=== PATIENT | male | born 1970 | race Hispanic/Latino ===

== ENCOUNTER 2017-02-27 05:55 | Inpatient (IN) | payer OTHER ==
[~2017-02-27 05:55] MED LIST: ANCEF/STERILE WATER 2 GM/20 ML 2 GM/20 ML SYRINGE IV NR; APRESOLINE IV PRN; DILAUDID IV PRN; FLAGYL 500 MG/100 ML 500 MG/100 ML BAG IV NR; LACTATED RINGERS 1,000 ML IV SCH; LOVENOX SUB-Q NR; MORPHINE IV PRN; MYLICON PO PRN; REGLAN IV PRN; TRANSDERM-SCOP TD SCH; ZOFRAN IV PRN
[2017-02-27] MEDS ORDERED: TRANSDERM-SCOP TD SCH (06:00)
[2017-02-27] MEDS ORDERED: FLAGYL 500 MG/100 ML 500 MG/100 ML BAG IV NR (06:00)
[2017-02-27] MEDS ORDERED: LOVENOX SUB-Q NR (06:00)
[2017-02-27] MEDS ORDERED: ANCEF/STERILE WATER 2 GM/20 ML 2 GM/20 ML SYRINGE IV NR (06:00)
[2017-02-27 07:12] LABS: Basophils % (Auto) 0.7 % (0.0-1.8); Hematocrit 44.6 % (35.5-45.6); Hemoglobin 15.4 gm/dl (11.8-15.2); Mean Corpuscular HGB Conc 35 % (32-34); Mean Corpuscular Hemoglobin 31 pg (28-32); Mean Corpuscular Volume 90 fl (84-94); Platelet Count 269 K/mm3 (140-440); Red Blood Count 4.96 M/mm3 (3.65-5.03); Red Cell Distribution Width 13.1 % (13.2-15.2); White Blood Count 7.1 K/mm3 (4.5-11.0)
[2017-02-27 07:15] LABS: Bilirubin,Urine NEG (Negative); Blood,Urine NEG (Negative); Ketones,Urine NEG (Negative); Leukocyte Esterase,Urine NEG (Negative); Mucus,Urine FEW /HPF; Nitrite,Urine NEG (Negative); Protein,Urine <15 mg/dL mg/dL (Negative); Urobilinogen,Urine < 2.0 mg/dL (<2.0)
[2017-02-27] MEDS ORDERED: DIPRIVAN 10 MG/ML IV ONE ×3 (07:18→09:31)
[2017-02-27] MEDS ORDERED: SUBLIMAZE ONE ×2 (07:18→08:34)
[2017-02-27] MEDS ORDERED: DILAUDID ONE ×2 (07:18→13:21)
[2017-02-27] MEDS ORDERED: ZOFRAN ONE (07:19)
[2017-02-27] MEDS ORDERED: ZEMURON IV ONE ×2 (07:19→11:02)
[2017-02-27] MEDS ORDERED: NEOSTIGMINE ONE (07:19)
[2017-02-27] MEDS ORDERED: DECADRON ONE (07:19)
[2017-02-27] MEDS ORDERED: ROBINUL ONE ×2 (07:19)
[2017-02-27] MEDS ORDERED: XYLOCAINE MPF 2% ONE (07:19)
--- NOTE | 2017-02-27 07:22 | Anesthesia Day of Surgery ---
Anesthesia Day of Surgery - Day of Surgery Patient Examined: Yes Patient H&P Reviewed: Yes Patient is NPO: Yes Beta Blockers: Yes Cardiac Clearance: Yes
--- NOTE | 2017-02-27 07:23 | Anesthesia Consultation ---
Anesthesia Consult and Med Hx Date of service: 02/27/17 - Airway Anesthetic Teeth Evaluation: Good, Crowns (top right molar) ROM Head & Neck: Adequate Mental/Hyoid Distance: Adequate Mallampati Class: Class II Intubation Access Assessment: Probably Good - Pulmonary Exam CTA: Yes - Cardiac Exam Cardiac Exam: RRR - Pre-Operative Health Status ASA Pre-Surgery Classification: ASA3 Proposed Anesthetic Plan: General - Pulmonary Hx Smoking: No Hx Sleep Apnea: Yes (+CPAP) - Cardiovascular System Hx Hypertension: Yes (9 MTHS, ON BYSTOLIC) Hx Valvular Heart Disease: Yes (MITRAL VALVE SURGERY 2016) - Central Nervous System Hx Seizures: No CVA: No - Endocrine Hx Renal Disease: No Hx Cirrhosis: No Hx Non-Insulin Dependent Diabetes: No Hx Thyroid Disease: No - Other Systems Hx Alcohol Use: Yes (VODKA 1 DRINK EVERY EVENING) Hx Cancer: No Hx Obesity: Yes (MORBID)
[2017-02-27] MEDS ORDERED: MARCAINE-EPI/PF 0.5%-1:200,000 INFILTRATI ONE ×2 (07:25→07:36)
[2017-02-27] MEDS ORDERED: XYLOCAINE 1% 20 mL ONE (07:25)
[2017-02-27] MEDS ORDERED: PEPCID IV NR (07:30)
[2017-02-27] MEDS ORDERED: VERSED IV NR (07:30)
[2017-02-27 07:35] LABS: Alanine Aminotransferase 24 units/L (7-56); Albumin 4.4 g/dL (3.9-5); Albumin/Globulin Ratio 1.6 %; Alkaline Phosphatase 59 units/L (35-129); Anion Gap 17 mmol/L; BUN/Creatinine Ratio 14.16; Blood Urea Nitrogen 17 mg/dL (9-20); Carbon Dioxide 24 mmol/L (22-30); Chloride 99.3 mmol/L (98-107); Glucose 110 mg/dL (75-100); Potassium 4.2 mmol/L (3.6-5.0); Sodium 136 mmol/L (137-145); Total Protein 7.1 g/dL (6.3-8.2)
[2017-02-27] MEDS ORDERED: XYLOCAINE 1% 20 mL INFILTRATI ONE (07:36)
[2017-02-27] MEDS ORDERED: NACL 0.9% IR ONE ×2 (07:36→08:52)
[2017-02-27 07:51] LABS: Calcium 9.2 mg/dL (8.4-10.2)
[2017-02-27] MEDS ORDERED: NEO SYNEPHRINE/NS Syringe(OR USE) IV ONE (08:00)
[2017-02-27] MEDS ORDERED: DILAUDID IV PRN ×2 (08:00→13:08)
[2017-02-27] MEDS ORDERED: ePHEDrine SULFATE ONE (08:38)
[2017-02-27] MEDS ORDERED: LACTATED RINGERS 1,000 ML ONE ×2 (08:40→12:32)
--- NOTE | 2017-02-27 11:51 | Discharge Summary ---
Providers - Providers Date of Admission: 02/27/17 10:04 Date of discharge: 02/27/17 Attending physician: ZIGGY PADGETT Primary care physician: JOSH RICHMOND MD Hospitalization Condition: Good Procedures: Lap Sleeve with Duodenal switch Disposition: DC-01 TO HOME OR SELFCARE - Discharge Diagnoses (1) Morbid (severe) obesity due to excess calories Status: Chronic Core Measure Documentation - Palliative Care Palliative Care/ Comfort Measures: Not Applicable - Core Measures Any of the following diagnoses?: none Exam - Constitutional Vitals: Temp Pulse Resp BP Pulse Ox 99.5 F 84 20 139/87 96 02/27/17 07:46 02/27/17 07:46 02/27/17 07:46 02/27/17 07:46 02/27/17 07:46 General appearance: Present: no acute distress, well-nourished - EENT Eyes: Present: PERRL, EOM intact ENT: hearing intact, clear oral mucosa, dentition normal - Neck Neck: Present: supple, normal ROM - Respiratory Respiratory effort: normal Respiratory: bilateral: CTA - Cardiovascular Rhythm: regular - Extremities Extremities: no ischemia, pulses intact, No edema, normal temperature, normal color, Full ROM Peripheral Pulses: within normal limits - Abdominal General gastrointestinal: Present: soft, non-tender, non-distended, normal bowel sounds Male genitourinary: Present: normal - Rectal Rectal Exam: deferred - Integumentary Integumentary: Present: clear, warm, dry - Musculoskeletal Musculoskeletal: strength equal bilaterally - Psychiatric Psychiatric: appropriate mood/affect Plan Activity: no restrictions Weight Bearing Status: Full Weight Bearing Diet: other (bariactric diet) Wound: keep clean and dry Follow up with: PRIMARY CAREMD [Primary Care Provider] - 7 Days ZIGGY PADGETT MD [Staff Physician] - 3 Days
[2017-02-27] MEDS ORDERED: TORADOL ONE (13:35)
[2017-02-27] MEDS ORDERED: TORADOL IV ONE (13:38)
--- NOTE | 2017-02-27 13:52 | Post Anesthesia Evaluation ---
- Post Anesthesia Evaluation Patient Participated: Yes Airway Patent: Yes Stable Respiratory Function: Yes Temp > 96.8F: Yes Pain Manageable: Yes Adequeate Hydration: Yes Anesthesia Complications: No Block Receding Appropriately: Not Applicable
[2017-02-27 14:25] VITALS: BP 161/98
[2017-02-27] MEDS ORDERED: TORADOL IV SCH (16:30)
[2017-02-28] MEDS ORDERED: LOVENOX SUB-Q SCH (10:00)
== END 2017-02-27 15:36 | disposition home or self-care (01) | DRG 621 ==
LOC: OR 05:55 → 2B-SURG 10:04 → 3A 13:48
PROVIDERS: ADMIT Specialist; ATTEND Specialist
PROC: 0DB64Z3 Excision of Stomach, Percutaneous Endoscopic Approach, Vertical (ICD-10-PCS; principal; 2017-02-27)
DX: E66.01 Morbid (severe) obesity due to excess calories (principal); G47.30 Sleep apnea, unspecified; K30 Functional dyspepsia
CPT/HCPCS: 36415; 80053; 81001; 85025; 88307; A4217; C9250; J0690; J1100; J1170; J1650; J1885; J2250; J2370; J2405; J2704; J2710; J3010; J7120

== ENCOUNTER 2017-06-25 08:51 | Inpatient (IN) | payer OTHER ==
[2017-06-25 10:32] LABS: Basophils % (Auto) 0.6 % (0.0-1.8); Eosinophils % (Auto) 1.8 % (0.0-4.3); Hematocrit 38.7 % (35.5-45.6); Hemoglobin 12.9 gm/dl (11.8-15.2); Mean Corpuscular HGB Conc 33 % (32-34); Mean Corpuscular Hemoglobin 30 pg (28-32); Mean Corpuscular Volume 90 fl (84-94); Platelet Count 189 K/mm3 (140-440); Red Blood Count 4.28 M/mm3 (3.65-5.03); Red Cell Distribution Width 16.5 % (13.2-15.2); White Blood Count 4.3 K/mm3 (4.5-11.0)
[2017-06-25 10:34] LABS: Anion Gap 23 mmol/L; BUN/Creatinine Ratio 11; Blood Urea Nitrogen 12 mg/dL (9-20); Calcium 8.9 mg/dL (8.4-10.2); Carbon Dioxide 26 mmol/L (22-30); Chloride 95.9 mmol/L (98-107); Glucose 69 mg/dL (75-100); Sodium 142 mmol/L (137-145)
[2017-06-25] MEDS ORDERED: APRESOLINE IV PRN (10:38)
[2017-06-25] MEDS ORDERED: DILAUDID IV PRN (10:38)
[2017-06-25] MEDS ORDERED: NORCO PO PRN (10:38)
[2017-06-25 10:39] LABS: Potassium 2.7 mmol/L (3.6-5.0)
[2017-06-25] MEDS ORDERED: PHENERGAN PR PRN (10:48)
[2017-06-25] MEDS ORDERED: LACTATED RINGERS 1,000 ML IV SCH (11:00)
[2017-06-25] MEDS ORDERED: REGLAN IV SCH (11:00)
[2017-06-25] MEDS ORDERED: 1: FOLVITE 1 MG, INFUVITE 10 ML, VITAMIN B-1 100 MG in NACL 0.9% 1000 ML 988.8 ML 2: NA IV SCH (11:00)
--- NOTE | 2017-06-25 12:47 | History and Physical Report ---
History of Present Illness Date of examination: 06/25/17 Date of admission: 06/25/17 10:28 Chief complaint: Vomiting, Nausea, Diarrhea History of present illness: 46 yo CM s/p lap Gastric Sleeve plus procedure in February 2017 at [facility] presents with persistent nausea and diarrhea with vomiting that intensified over the past 24hrs. Pt says he has had recurrent episodes of vomiting and diarrhea since the procedure but became worse last night and he could not keep food or liquids down. Pt states he usually has 6-8 loose bowel movements per day. In the past he tried cholestyramine previously w/o relief and recently tried the lomotil that did not seem to help either. He was taking up to 4 pills of lomotil a day which helped his diarrhea but he continued to have several loose stool a day. He reports overall fatigue and malaise over the past months since the procedure. He has not been able to work or carry out daily activities per his partner. He admits that his depression has increased with these symptoms. Denies abdominal pain, maintains ability to pass gas. Pre Wt: 310lbs BMI: 42 current: 193lbs BMI 26 Past History Past Medical History: hypertension, hyperlipidemia, other (Morbid obesity, depression, anxiety) Past Surgical History: valve replacement (mitral valve repair 05/2016), bowel surgery (Gastric Sleeve Plus 02/2017), Other Social history: (Partner), lives with family. denies: smoking, alcohol abuse, IV drug use Family history: cancer (Father-cancer, Mother-) Medications and Allergies Allergies Allergy/AdvReac Type Severity Reaction Status Date / Time No Known Allergies Allergy Unverified 02/26/17 10:35 Home Medications Medication Instructions Recorded Confirmed Last Taken Type Bupropion HCl [Wellbutrin SR] 200 mg PO QAM 02/26/17 02/27/17 02/27/17 History Fluticasone [Flonase] 1 spray NS QDAY 02/26/17 02/27/17 02/27/17 History Loratadine [Claritin] 10 mg PO DAILY 02/26/17 02/27/17 02/27/17 History Multivitamin Tab [Multiple Vitamin 1 each PO QDAY 02/26/17 02/27/17 02/20/17 History TAB (Theragran)] Nebivolol HCl [Bystolic] 2.5 mg PO QDAY 02/26/17 02/27/17 02/27/17 History [place]-3 Fatty Acids/Fish Oil [Fish 1 each PO QDAY 02/26/17 02/27/17 02/20/17 History Oil 1,000 mg Softgel] traZODone [Desyrel] 25 mg PO QHS 02/26/17 02/27/17 02/27/17 History Active Meds: Active Medications Acetaminophen/Hydrocodone Bitart (Renfrew) 7.5 mg PO Q4H PRN PRN Reason: Pain, Moderate (4-6) Bupropion HCl (Wellbutrin Sr) 200 mg PO QDAY BHAVANA Enoxaparin Sodium (Lovenox) 40 mg SUB-Q QDAY BHAVANA Hydralazine HCl (Apresoline) 10 mg IV Q6H PRN PRN Reason: SBP > 150 Hydromorphone HCl (Dilaudid) 0.5 mg IV Q3H PRN PRN Reason: Pain , Severe (7-10) Folic Acid 1 mg/ Multivitamins /Minerals 10 ml/ Thiamine HCl 100 mg/ Sodium Chloride 1,000 mls @ 125 mls/hr IV .BY DURATION BHAVANA Sodium Chloride (Nacl 0.9% 1000 Ml) 1,000 mls @ 125 mls/hr IV .BY DURATION BHAVANA Lactated Ringer's (Lactated Ringers) 1,000 mls @ 150 mls/hr IV DIRECT BHAVANA Potassium Chloride (Kcl 10meq/100ml) 10 meq in 100 mls @ 100 mls/hr IV Q1H BHAVANA Stop: 06/25/17 14:59 Magnesium Sulfate (Magnesium Sulfate 2gm/50ml) 2 gm in 50 mls @ 25 mls/hr IV ONCE ONE Stop: 06/25/17 15:32 Lorazepam (Ativan) 0.5 mg IV Q8H BHAVANA Ondansetron HCl (Zofran) 4 mg IV Q4H BHAVANA Promethazine HCl (Phenergan) 25 mg NC Q6H PRN PRN Reason: Nausea And Vomiting Simethicone (Mylicon) 80 mg PO Q6H PRN PRN Reason: Gas pain Review of Systems All systems: negative - Constitutional weight loss, anorexia, fatigue, weakness, malaise, poor appetite - Cardiovascular lightheadedness, no chest pain, no edema, no syncope, no shortness of breath - Respiratory no cough - Gastrointestinal nausea, vomiting, diarrhea, loss of appetite, other (Malodorous gas) - Genitourinary no dysuria, no flank pain - Muskuloskeletal no low back pain - Integumentary rash (papular rash), other - Neurological weakness, no numbness, no tingling, no seizures, no syncope - Psychiatric depression - Hematologic/Lymphatic no easy bruising, no easy bleeding - Allergic/Immunologic no wheezing Exam Vital Signs Temp Pulse Resp BP Pulse Ox 97.5 F L 83 16 92/65 99 06/25/17 09:16 06/25/17 09:16 06/25/17 09:16 06/25/17 09:16 06/25/17 09:16 - General physical appearance Positive: other (Lethargic, tired appearing, loss of weight since last encounter ) - Respiratory Positive: normal expansion, normal respiratory effort - Cardiovascular Rhythm: regular - Extremities Extremities: no ischemia - Abdomen Abdomen: Present: soft, other (non-tender, non distended, incisions healed. no rebound no guarding. flat. ) - Rectum Rectum: fissures (midline fissure, no rectal bleeding, no hemorroids ) - Integumentary other (papular rash in multiple locations -trunk and extremities) - Neurologic Neurologic: alert and oriented to time, place and person, motor strength and sensation are grossly intact - Musculoskeletal normal posture - Psychiatric Psychiatric: depressed Results - Labs 06/25/17 09:43 06/25/17 09:43 Assessment and Plan 46yo CM s/p lap Gastric Sleeve Plus Procedure in February presents with nausea and diarrhea with vomiting that has intensified over the past 24hrs 1. Vomiting/Nausea -h/o persistent nausea since procedure - 2 episodes of vomiting since last night w/o relief, unable to eat or drink - Zofran q4hrs, phenergren, ativan - monitor electrolytes- K, Mg - IVF: LR at 150cc/hr. Banana bag x 2. -Monitor his urine output. 2. Diarrhea - Likely due to malabsorption since procedure - will hold off on Lomotil, or immodium until he is tolerating po or diarrhea is >2 x per day. He had one loose stool today. 3. Nutrition -npo except meds and ice chips until n/v controlled -prealbumin and vit levels ordered. Will replace was needed. -If unable to tolerate po may need a midline or picc line for IV nutrition 4. Anal fissure - Topical Lidocaine 2% - Sitz Bath PRN 5. Electrolytes Imbalance - Hypokalemia, Hypomagnesia - KCl riders, Mgsulfate. - Repeat lab electrolytes tonight after repleted 6. Papular Rash - Suspect due to vitamin deficiency - F/u Vitamin levels 7. Proph: DVT proph: SCDs, Lovenox GI: famotidine 20mg IVdaily
[2017-06-25] MEDS: ATIVAN IV SCH (13:25)
[2017-06-25] MEDS ORDERED: MAGNESIUM SULFATE 2GM/50ML 2 GM/50 ML BAG IV ONE (13:33)
[2017-06-25] MEDS ORDERED: XYLOCAINE TOPICAL 2% TP PRN (13:46)
[2017-06-25] MEDS: PEPCID IV SCH (14:21)
[2017-06-25] MEDS: ZOFRAN IV SCH ×3 (14:21→23:20)
[2017-06-25] MEDS: KCL 10MEQ/100ML 10 MEQ/100 ML BAG IV SCH ×3 (16:25→23:18)
[2017-06-25 20:35] LABS: Bacteria,Urine 1+ /HPF (Negative); Bilirubin,Urine SM (Negative); Blood,Urine MOD (Negative); Ketones,Urine 80 mg/dL (Negative); Leukocyte Esterase,Urine NEG (Negative); Mucus,Urine 3+ /HPF; Nitrite,Urine NEG (Negative)
[2017-06-25 22:07] LABS: Anion Gap 24 mmol/L; BUN/Creatinine Ratio 12; Blood Urea Nitrogen 12 mg/dL (9-20); Calcium 8.4 mg/dL (8.4-10.2); Carbon Dioxide 23 mmol/L (22-30); Chloride 97.5 mmol/L (98-107); Glucose 62 mg/dL (75-100); Sodium 141 mmol/L (137-145)
[2017-06-25] MEDS: DESYREL PO SCH (23:20)
[2017-06-26] MEDS: KCL 10MEQ/100ML 10 MEQ/100 ML BAG IV SCH ×3 (00:42→18:01)
[2017-06-26] MEDS: CARAFATE PO SCH ×4 (00:43→18:00)
[2017-06-26 03:47] LABS: Hematocrit 34.5 % (35.5-45.6); Hemoglobin 11.7 gm/dl (11.8-15.2); Mean Corpuscular HGB Conc 34 % (32-34); Mean Corpuscular Hemoglobin 31 pg (28-32); Mean Corpuscular Volume 91 fl (84-94); Platelet Count 164 K/mm3 (140-440); Red Cell Distribution Width 16.1 % (13.2-15.2); White Blood Count 3.4 K/mm3 (4.5-11.0)
[2017-06-26 04:15] LABS: Alanine Aminotransferase 19 units/L (7-56); Albumin 3.1 g/dL (3.9-5); Albumin/Globulin Ratio 1.6 %; Alkaline Phosphatase 34 units/L (35-129); Anion Gap 23 mmol/L; BUN/Creatinine Ratio 11; Blood Urea Nitrogen 11 mg/dL (9-20); Calcium 8.5 mg/dL (8.4-10.2); Carbon Dioxide 23 mmol/L (22-30); Chloride 99.2 mmol/L (98-107); Glucose 63 mg/dL (75-100); Sodium 142 mmol/L (137-145)
[2017-06-26 04:34] LABS: Potassium 2.9 mmol/L (3.6-5.0)
[2017-06-26] MEDS: ZOFRAN IV SCH ×3 (07:30→14:08)
[2017-06-26] MEDS ORDERED: MAGNESIUM SULFATE 1 GM in NACL 0.9% 50 ML IV ONE (07:35)
[2017-06-26 07:38] LABS: Anisocytosis Few; Basophils % (Manual) 0 % (0.0-1.8); Blastocytes % (Manual) 0 %; Diff Status Complete; Ovalocytes Few
[2017-06-26 07:56] LABS: Anion Gap 23 mmol/L; BUN/Creatinine Ratio 10; Blood Urea Nitrogen 10 mg/dL (9-20); Calcium 8.6 mg/dL (8.4-10.2); Carbon Dioxide 25 mmol/L (22-30); Chloride 96.6 mmol/L (98-107); Glucose 64 mg/dL (75-100); Potassium 3.5 mmol/L (3.6-5.0); Sodium 141 mmol/L (137-145)
--- NOTE | 2017-06-26 08:33 | Progress Note ---
Assessment and Plan 46yo CM s/p lap Gastric Sleeve Plus Procedure in February 2017 presented with nausea , vomiting, diarrhea. 1. Vomiting/Nausea - H/o persistent nausea since procedure - 2 episodes of vomiting before presenting to ER - No further vomiting since admission - Zofran q4hrs, phenergren, ativan - Continue to monitor electrolytes- K+, Mg - IVF: LR at 150cc/hr, Recv'd banana bag x2 yesterday - Continue to monitor urine output 2. Diarrhea - Likely due to malabsorption since procedure - No reported episodes since admission - Will hold off on Lomotil or immodium until he is tolerating PO or diarrhea is <2 x per day 3. Nutrition - Advance to [facility] I diet - Prealbumin level 0.15 - Picc line for IV nutrition per Dr. Bojorquez 4. Anal fissure - Topical Lidocaine 2% - Sitz Bath PRN 5. Electrolytes Imbalance - Hypokalemia, Hypomagnesia on admission - KCl riders, Mgsulfate administered yesterday - K+ 3.5, Mg 1.9 - KCl x2 ordered, repeat labs once completed 6. Papular Rash - Suspect due to vitamin deficiency - Vit B elevated - Vit D pending - Consider zinc level 7. Proph: DVT proph: SCDs, Lovenox GI: famotidine 20mg IVdaily Subjective Date of service: 06/26/17 Patient Reports: Positive: no new complaints, tolerating liquids well ( Tolerating sips of water and ice chips), nausea. Negative: vomiting, shortness of breath Objective Vital Signs - 12hr 06/25/17 06/26/17 06/26/17 23:59 00:10 05:30 Temperature 97.5 F L 98.7 F 97.5 F L Pulse Rate 68 112 H 73 Respiratory 16 20 16 Rate Blood Pressure 100/69 154/95 103/71 O2 Sat by Pulse 95 92 99 Oximetry 06/26/17 07:14 Temperature 97.5 F L Pulse Rate 71 Respiratory 16 Rate Blood Pressure 108/77 O2 Sat by Pulse 98 Oximetry - General physical appearance no distress, no pain, other (Thin appearing) - Eyes normal occular movement - Neck trachea midline, no venous distension - Respiratory normal expansion, normal respiratory effort, clear to auscultation - Abdomen soft, not tender, bowel sounds normal, not distended, not rebound - Rectum fissures (Midline) - Neurologic normal coordination, normal sensation - Psychiatric oriented to time, oriented to person, oriented to place, speech is normal - Labs 06/26/17 03:34 06/26/17 07:26 Diabetes panel 06/25/17 06/26/17 06/26/17 Range/Units 21:04 03:34 07:26 Sodium 141 142 141 (137-145) mmol/L Potassium 3.0 L 2.9 L* 3.5 L D (3.6-5.0) mmol/L Chloride 97.5 L 99.2 96.6 L (98-107) mmol/L Carbon Dioxide 23 23 25 (22-30) mmol/L BUN 12 11 10 (9-20) mg/dL Creatinine 1.0 1.0 1.0 (0.8-1.5) mg/dL Glucose 62 L 63 L 64 L (75-100) mg/dL Calcium 8.4 8.5 8.6 (8.4-10.2) mg/dL AST 23 (5-40) units/L ALT 19 (7-56) units/L Alkaline Phosphatase 34 L (35-129) units/L Total Protein 5.0 L (6.3-8.2) g/dL Albumin 3.1 L (3.9-5) g/dL Calcium panel 06/25/17 06/26/17 06/26/17 Range/Units 21:04 03:34 07:26 Calcium 8.4 8.5 8.6 (8.4-10.2) mg/dL Phosphorus 3.80 (2.5-4.5) mg/dL Albumin 3.1 L (3.9-5) g/dL Pituitary panel 06/25/17 06/26/17 06/26/17 Range/Units 21:04 03:34 07:26 Sodium 141 142 141 (137-145) mmol/L Potassium 3.0 L 2.9 L* 3.5 L D (3.6-5.0) mmol/L Chloride 97.5 L 99.2 96.6 L (98-107) mmol/L Carbon Dioxide 23 23 25 (22-30) mmol/L BUN 12 11 10 (9-20) mg/dL Creatinine 1.0 1.0 1.0 (0.8-1.5) mg/dL Glucose 62 L 63 L 64 L (75-100) mg/dL Calcium 8.4 8.5 8.6 (8.4-10.2) mg/dL Adrenal panel 06/25/17 06/26/17 06/26/17 Range/Units 21:04 03:34 07:26 Sodium 141 142 141 (137-145) mmol/L Potassium 3.0 L 2.9 L* 3.5 L D (3.6-5.0) mmol/L Chloride 97.5 L 99.2 96.6 L (98-107) mmol/L Carbon Dioxide 23 23 25 (22-30) mmol/L BUN 12 11 10 (9-20) mg/dL Creatinine 1.0 1.0 1.0 (0.8-1.5) mg/dL Glucose 62 L 63 L 64 L (75-100) mg/dL Calcium 8.4 8.5 8.6 (8.4-10.2) mg/dL Total Bilirubin 0.80 (0.1-1.2) mg/dL AST 23 (5-40) units/L ALT 19 (7-56) units/L Alkaline Phosphatase 34 L (35-129) units/L Total Protein 5.0 L (6.3-8.2) g/dL Albumin 3.1 L (3.9-5) g/dL
[2017-06-26] MEDS ORDERED: D5LR 1,000 ML IV SCH (10:00)
[2017-06-26] MEDS: WELLBUTRIN SR PO SCH (11:11)
[2017-06-26] MEDS: PEPCID IV SCH (11:23)
[2017-06-26] MEDS: LOVENOX SUB-Q SCH (11:24)
[2017-06-26] MEDS: ATIVAN IV SCH (14:10)
--- NOTE | 2017-06-26 15:44 | XRay Report ---
Single view chest: History: Left arm PICC line placement. Findings: Tip of left PICC line in the lower superior vena cava. Normal cardiomediastinal silhouette. Trachea is midline. No consolidation, pneumothorax or pleural effusion. Impression: Tip of left PICC line in lower superior vena cava.
[2017-06-26] MEDS ORDERED: VITAMIN B-1 100 MG, FOLVITE 1 MG, INFUVITE 10 ML in NACL 0.9% 1000 ML 1,000 ML IV SCH (18:00)
[2017-06-26] MEDS ORDERED: TPN ADULT 2,016 ML IV SCH (20:00)
[2017-06-26] MEDS: NACL 0.9% 1000 ML 1,000 ML IV SCH (20:58)
[2017-06-26] MEDS: MYLICON PO PRN (21:10)
[2017-06-27] MEDS: ATIVAN IV SCH ×4 (03:47→21:55)
[2017-06-27] MEDS: ZOFRAN IV SCH ×5 (03:48→19:00)
[2017-06-27] MEDS: CARAFATE PO SCH ×3 (03:48→18:00)
[2017-06-27 06:47] LABS: Basophils % (Auto) 0.4 % (0.0-1.8); Eosinophils % (Auto) 5.4 % (0.0-4.3); Hematocrit 34.4 % (35.5-45.6); Hemoglobin 11.4 gm/dl (11.8-15.2); Mean Corpuscular HGB Conc 33 % (32-34); Mean Corpuscular Hemoglobin 30 pg (28-32); Mean Corpuscular Volume 91 fl (84-94); Platelet Count 158 K/mm3 (140-440); Red Blood Count 3.81 M/mm3 (3.65-5.03); Red Cell Distribution Width 16.3 % (13.2-15.2); White Blood Count 4.2 K/mm3 (4.5-11.0)
[2017-06-27 09:09] LABS: Alanine Aminotransferase 19 units/L (7-56); Albumin 3.2 g/dL (3.9-5); Albumin/Globulin Ratio 1.7 %; Alkaline Phosphatase 38 units/L (35-129); Anion Gap 22 mmol/L; BUN/Creatinine Ratio 11; Blood Urea Nitrogen 9 mg/dL (9-20); Calcium 8.4 mg/dL (8.4-10.2); Carbon Dioxide 26 mmol/L (22-30); Chloride 102.5 mmol/L (98-107); Glucose 94 mg/dL (75-100); Potassium 3.3 mmol/L (3.6-5.0); Sodium 147 mmol/L (137-145); Total Protein 5.1 g/dL (6.3-8.2)
[2017-06-27] MEDS: PEPCID IV SCH (10:49)
[2017-06-27] MEDS: LOVENOX SUB-Q SCH (10:50)
[2017-06-27] MEDS: NACL 0.9% 1000 ML 1,000 ML IV SCH (10:51)
[2017-06-27] MEDS: WELLBUTRIN SR PO SCH ×2 (11:05→11:08)
--- NOTE | 2017-06-27 14:55 | Progress Note ---
Assessment and Plan 46yo CM s/p lap Gastric Sleeve Plus Procedure in February 2017 presented with nausea , vomiting, diarrhea. 1. Vomiting/Nausea - H/o persistent nausea since procedure - 2 episodes of vomiting before presenting to ER - No further vomiting since admission - Zofran q4hrs, ativan - Continue to monitor electrolytes- K+, Mg - IVF: dc NS. continue TPN - Continue to monitor urine output 2. Diarrhea - Likely due to malabsorption since procedure - No reported episodes since admission - start lomitil today 3. Nutrition - Advance to [facility] I diet - Prealbumin level 0.15 - Picc line for IV nutrition per Dr. Bojorquez- contact case management in am regarding home TPN 4. Anal fissure - Topical Lidocaine 2% - Sitz Bath PRN 5. Electrolytes Imbalance - Hypokalemia, Hypomagnesia on admission - KCl riders, Mgsulfate administered yesterday - KCl x2 ordered, f/u in am 6. Papular Rash - Suspect due to vitamin deficiency - Vit B elevated - Vit D pending - Consider zinc level 7. Proph: DVT proph: SCDs, Lovenox GI: famotidine 20mg IVdaily Subjective Narrative: Pt had nausea during day but did not vomiting. No pain. Feels weak today. + voiding. minimal ambulation. He tolerated jello and water and soup with protein pack in it. 4 episodes of diarrhea today. Objective Vital Signs - 12hr 06/27/17 06/27/17 06/27/17 06:01 06:44 08:21 Temperature 97.6 F 98.1 F Pulse Rate 67 76 Respiratory 20 16 Rate Blood Pressure 100/65 111/80 Blood Pressure 100/65 [Left] O2 Sat by Pulse 95 95 Oximetry 06/27/17 06/27/17 09:33 10:46 Temperature Pulse Rate Respiratory 16 Rate Blood Pressure Blood Pressure [Left] O2 Sat by Pulse 95 Oximetry - General physical appearance Narrative Exam: Gen: Alert and awake. Abd: soft non tender. ext: no c/c/e - Labs 06/27/17 Unknown 06/27/17 07:29 Diabetes panel 06/27/17 Range/Units 07:29 Sodium 147 H (137-145) mmol/L Potassium 3.3 L (3.6-5.0) mmol/L Chloride 102.5 (98-107) mmol/L Carbon Dioxide 26 (22-30) mmol/L BUN 9 (9-20) mg/dL Creatinine 0.8 (0.8-1.5) mg/dL Glucose 94 (75-100) mg/dL Calcium 8.4 (8.4-10.2) mg/dL AST 20 (5-40) units/L ALT 19 (7-56) units/L Alkaline Phosphatase 38 (35-129) units/L Total Protein 5.1 L (6.3-8.2) g/dL Albumin 3.2 L (3.9-5) g/dL Calcium panel 06/27/17 Range/Units 07:29 Calcium 8.4 (8.4-10.2) mg/dL Phosphorus 2.70 D (2.5-4.5) mg/dL Albumin 3.2 L (3.9-5) g/dL Pituitary panel 06/27/17 Range/Units 07:29 Sodium 147 H (137-145) mmol/L Potassium 3.3 L (3.6-5.0) mmol/L Chloride 102.5 (98-107) mmol/L Carbon Dioxide 26 (22-30) mmol/L BUN 9 (9-20) mg/dL Creatinine 0.8 (0.8-1.5) mg/dL Glucose 94 (75-100) mg/dL Calcium 8.4 (8.4-10.2) mg/dL Adrenal panel 06/27/17 Range/Units 07:29 Sodium 147 H (137-145) mmol/L Potassium 3.3 L (3.6-5.0) mmol/L Chloride 102.5 (98-107) mmol/L Carbon Dioxide 26 (22-30) mmol/L BUN 9 (9-20) mg/dL Creatinine 0.8 (0.8-1.5) mg/dL Glucose 94 (75-100) mg/dL Calcium 8.4 (8.4-10.2) mg/dL Total Bilirubin 0.70 (0.1-1.2) mg/dL AST 20 (5-40) units/L ALT 19 (7-56) units/L Alkaline Phosphatase 38 (35-129) units/L Total Protein 5.1 L (6.3-8.2) g/dL Albumin 3.2 L (3.9-5) g/dL
[2017-06-27] MEDS: KCL 10MEQ/100ML 10 MEQ/100 ML BAG IV SCH ×2 (15:04→16:32)
[2017-06-27] MEDS ORDERED: TPN ADULT 2,016 ML IV SCH (20:00)
[2017-06-27] MEDS ORDERED: INTRALIPID 20% 250 ML IV SCH (20:00)
[2017-06-27] MEDS: MYLICON PO PRN (20:13)
[2017-06-27] MEDS: LOMOTIL PO SCH (20:14)
[2017-06-27] MEDS: DESYREL PO SCH (21:55)
[2017-06-28] MEDS: CARAFATE PO SCH ×4 (00:10→12:00)
[2017-06-28] MEDS: ZOFRAN IV SCH ×5 (00:18→15:00)
[2017-06-28] MEDS: LOMOTIL PO SCH ×5 (00:19→23:00)
[2017-06-28] MEDS: ATIVAN IV SCH ×4 (05:08→22:10)
[2017-06-28 07:02] LABS: Anion Gap 15 mmol/L; BUN/Creatinine Ratio 16; Blood Urea Nitrogen 11 mg/dL (9-20); Calcium 8.4 mg/dL (8.4-10.2); Carbon Dioxide 30 mmol/L (22-30); Chloride 101.9 mmol/L (98-107); Glucose 83 mg/dL (75-100); Potassium 3.5 mmol/L (3.6-5.0); Sodium 143 mmol/L (137-145)
[2017-06-28] MEDS ORDERED: NACL 0.9% 250ML 250 ML ONE (10:24)
[2017-06-28] MEDS: KCL 10MEQ/100ML 10 MEQ/100 ML BAG IV SCH ×2 (10:26→13:07)
[2017-06-28] MEDS: PEPCID IV SCH (10:29)
[2017-06-28] MEDS: LOVENOX SUB-Q SCH (10:35)
[2017-06-28] MEDS: WELLBUTRIN SR PO SCH (10:37)
[2017-06-28] MEDS ORDERED: KCL 20MEQ/100ML 20 MEQ/100 ML BAG IV ONE (12:59)
[2017-06-28 13:59] LABS: Vitamin D, 25-OH, Total 89 ng/mL (30-100)
--- NOTE | 2017-06-28 18:36 | Progress Note ---
Assessment and Plan 46yo CM s/p lap Gastric Sleeve Plus Procedure in February 2017 presented with nausea , vomiting, diarrhea. 1. Vomiting/Nausea - H/o persistent nausea since procedure - 2 episodes of vomiting before presenting to ER - No further vomiting since admission - Zofran q4hrs, ativan - Continue to monitor electrolytes- K+, Mg- - continue TPN - Continue to monitor urine output 2. Diarrhea - Likely due to malabsorption since procedure - Few episodes today, started on Lomotil - If diarrhea persists, titrate up dose of Lomitil or add immodium 3. Nutrition - Advance to [facility] I diet - Prealbumin level 0.15, will remeasure again tomorrow to assess nutrition status; if still low will check again Sunday in preparation for surgery - Picc line for IV nutrition per Dr. Bojorquez- contacted case management regarding home TPN and home health- waiting on insurance approval 4. Anal fissure - Topical Lidocaine 2% - Sitz Bath PRN 5. Electrolytes Imbalance - Hypokalemia, Hypomagnesia on admission - KCl riders, Mgsulfate administered yesterday - K+= 3.5; KCl x1 today, f/u in AM 6. Papular Rash - Suspect due to vitamin deficiency - Vit B elevated - Vit D2/D3 pending, D Total-normal - Consider zinc level 7. Proph: DVT proph: SCDs, Lovenox GI: famotidine 20mg IVdaily Subjective Date of service: 06/28/17 Patient Reports: Positive: no new complaints, feels better, tolerating liquids well, diarrhea (x 3 episodes ). Negative: nausea, vomiting, shortness of breath , fever Narrative: Pt says that he is feeling better, is less weak and tolerating most of his solids and liquids in small bites/sips. He states he had some episodes of diarrhea and nausea throughout the day but no vomiting. He continues to be on TPN and has been adding the protein packets to broth/clear liquids. Pt ambulated down the halls today. Denies SOB or abdominal pain. Objective Vital Signs - 12hr 06/28/17 06/28/17 06/28/17 07:00 07:21 11:42 Temperature 98.2 F 98.2 F 97.8 F Pulse Rate 69 73 Respiratory 18 18 16 Rate Blood Pressure 114/83 116/86 Blood Pressure 114/83 [Left] O2 Sat by Pulse 98 96 Oximetry 06/28/17 16:00 Temperature 98 F Pulse Rate 73 Respiratory 20 Rate Blood Pressure Blood Pressure 109/74 [Left] O2 Sat by Pulse 98 Oximetry - General physical appearance no distress, other (thin appearing) - Eyes normal occular movement - ENT no congestion - Respiratory normal expansion, normal respiratory effort - Abdomen soft, not tender, not rebound, not guarding - Integumentary no rash - Neurologic normal coordination, normal sensation - Musculoskeletal normal gait - Psychiatric oriented to time, oriented to person, oriented to place, speech is normal - Labs 06/27/17 Unknown 06/28/17 04:00 Diabetes panel 06/28/17 Range/Units 04:00 Sodium 143 (137-145) mmol/L Potassium 3.5 L (3.6-5.0) mmol/L Chloride 101.9 (98-107) mmol/L Carbon Dioxide 30 (22-30) mmol/L BUN 11 (9-20) mg/dL Creatinine 0.7 L (0.8-1.5) mg/dL Glucose 83 (75-100) mg/dL Calcium 8.4 (8.4-10.2) mg/dL Calcium panel 06/26/17 06/28/17 Range/Units 06:05 04:00 Calcium 8.4 (8.4-10.2) mg/dL Phosphorus 2.80 (2.5-4.5) mg/dL 25-OH Vitamin D Total 89 (30-100) ng/mL Pituitary panel 06/28/17 Range/Units 04:00 Sodium 143 (137-145) mmol/L Potassium 3.5 L (3.6-5.0) mmol/L Chloride 101.9 (98-107) mmol/L Carbon Dioxide 30 (22-30) mmol/L BUN 11 (9-20) mg/dL Creatinine 0.7 L (0.8-1.5) mg/dL Glucose 83 (75-100) mg/dL Calcium 8.4 (8.4-10.2) mg/dL Adrenal panel 06/28/17 Range/Units 04:00 Sodium 143 (137-145) mmol/L Potassium 3.5 L (3.6-5.0) mmol/L Chloride 101.9 (98-107) mmol/L Carbon Dioxide 30 (22-30) mmol/L BUN 11 (9-20) mg/dL Creatinine 0.7 L (0.8-1.5) mg/dL Glucose 83 (75-100) mg/dL Calcium 8.4 (8.4-10.2) mg/dL
[2017-06-28] MEDS ORDERED: TPN ADULT 2,016 ML IV SCH (20:00)
[2017-06-28] MEDS: DESYREL PO SCH (21:01)
[2017-06-29] MEDS: ZOFRAN IV SCH ×4 (01:28→07:00)
[2017-06-29] MEDS: CARAFATE PO SCH ×3 (01:29→08:09)
[2017-06-29] MEDS: ATIVAN IV SCH ×2 (02:36→03:00)
[2017-06-29] MEDS: DESYREL PO SCH (02:37)
[2017-06-29] MEDS: LOMOTIL PO SCH ×2 (05:00→10:54)
[2017-06-29 06:51] LABS: Anion Gap 12 mmol/L; BUN/Creatinine Ratio 28; Blood Urea Nitrogen 17 mg/dL (9-20); Calcium 8.3 mg/dL (8.4-10.2); Carbon Dioxide 30 mmol/L (22-30); Chloride 103.1 mmol/L (98-107); Glucose 95 mg/dL (75-100); Potassium 4.5 mmol/L (3.6-5.0); Sodium 141 mmol/L (137-145)
--- NOTE | 2017-06-29 09:36 | Progress Note ---
Assessment and Plan 46yo CM s/p lap Gastric Sleeve Plus Procedure in February 2017 presented with nausea , vomiting, diarrhea. 1. Vomiting/Nausea - H/o persistent nausea since procedure - 2 episodes of vomiting before presenting to ER - No further vomiting since admission - Zofran q4hrs, ativan - Continue to monitor electrolytes- K+, Mg-: improving - continue TPN - Continue to monitor urine output 2. Diarrhea - Likely due to malabsorption since procedure - Lomotil - No new episodes since last night - If diarrhea persists, titrate up dose of Lomotil or add immodium 3. Nutrition - Advance to Fausto I diet - Prealbumin level 0.15; 06/29- 0.13; still low- pt encouraged to continue to eat high protein w/ protein packets and high protein foods as tolerated - If not d/c, remeasure prealbumin tomorrow - Picc line for IV nutrition per Dr. Bojorquez- contacted case management regarding home TPN and home health- still waiting on insurance approval for home maria elena - D/C home TPN and home health confirmed -rpt preablumin on Sunday with labs via VNS. If prealbumin increased, will keep surgery planned for Sunday. 4. Anal fissure - Topical Lidocaine 2% - Sitz Bath PRN 5. Electrolytes Imbalance - Hypokalemia, Hypomagnesia on admission- improved WNL today - KCl riders, Mgsulfate administered yesterday - K+= 4.5 6. Papular Rash - Suspect due to vitamin deficiency - Vit B elevated - Vit D2/D3 pending, D Total-normal - Consider zinc level 7. Proph: DVT proph: SCDs, Lovenox GI: famotidine 20mg IVdaily Subjective Patient Reports: Positive: no new complaints, feels better, tolerating liquids well (Tolerating broth and clear liquids w/ protein packets occasionally), diarrhea (No BM since last night). Negative: tolerating a regular diet (Not able to tolerate soft solids this am), vomiting, shortness of breath, fever Narrative: Pt is feeling better, able to ambulate well w/o problems. Pt still not able to tolerate the soft solid food (scrambled eggs) this am due to no appetite for them but did eat the full amount of turkey for dinner. He is tolerating the broth, jello, and clear liquids w/ protein packets well w/o nausea, vomiting or diarrhea. Denies abdominal pain or MSK weakness. He had one episode of diarrhea today. Objective Vital Signs - 12hr 06/28/17 06/29/17 06/29/17 22:00 00:08 04:30 Temperature 97.8 F 97.9 F Pulse Rate 67 64 Respiratory 20 20 20 Rate Blood Pressure 111/72 115/79 Blood Pressure [Left] O2 Sat by Pulse 95 97 Oximetry 06/29/17 07:32 Temperature 97.5 F L Pulse Rate 70 Respiratory 18 Rate Blood Pressure Blood Pressure 113/81 [Left] O2 Sat by Pulse 99 Oximetry - General physical appearance well nourished (appears more energized and less lethargic), no distress - Eyes normal occular movement - Respiratory normal expansion, normal respiratory effort - Abdomen soft, not tender, not masses, not rebound - Integumentary no abnormal pigmentation - Neurologic normal coordination, normal sensation - Musculoskeletal normal gait - Psychiatric oriented to time, oriented to person, oriented to place, speech is normal - Labs 06/27/17 Unknown 06/29/17 06:10 Diabetes panel 06/29/17 Range/Units 06:10 Sodium 141 (137-145) mmol/L Potassium 4.5 D (3.6-5.0) mmol/L Chloride 103.1 (98-107) mmol/L Carbon Dioxide 30 (22-30) mmol/L BUN 17 (9-20) mg/dL Creatinine 0.6 L (0.8-1.5) mg/dL Glucose 95 (75-100) mg/dL Calcium 8.3 L (8.4-10.2) mg/dL Calcium panel 06/26/17 06/29/17 Range/Units 06:05 06:10 Calcium 8.3 L (8.4-10.2) mg/dL Phosphorus 2.20 L D (2.5-4.5) mg/dL 25-OH Vitamin D Total 89 (30-100) ng/mL Pituitary panel 06/29/17 Range/Units 06:10 Sodium 141 (137-145) mmol/L Potassium 4.5 D (3.6-5.0) mmol/L Chloride 103.1 (98-107) mmol/L Carbon Dioxide 30 (22-30) mmol/L BUN 17 (9-20) mg/dL Creatinine 0.6 L (0.8-1.5) mg/dL Glucose 95 (75-100) mg/dL Calcium 8.3 L (8.4-10.2) mg/dL Adrenal panel 06/29/17 Range/Units 06:10 Sodium 141 (137-145) mmol/L Potassium 4.5 D (3.6-5.0) mmol/L Chloride 103.1 (98-107) mmol/L Carbon Dioxide 30 (22-30) mmol/L BUN 17 (9-20) mg/dL Creatinine 0.6 L (0.8-1.5) mg/dL Glucose 95 (75-100) mg/dL Calcium 8.3 L (8.4-10.2) mg/dL
[2017-06-29] MEDS: LOVENOX SUB-Q SCH (10:53)
[2017-06-29] MEDS: PEPCID IV SCH (10:53)
--- NOTE | 2017-06-29 11:45 | Discharge Summary ---
Providers - Providers Date of Admission: 06/25/17 10:28 Date of discharge: 06/29/17 Attending physician: ZIGGY BOJORQUEZ 06/26/17 09:04 Consult to Dietitian/Nutrition [CONS] Routine Physician Instructions: Reason For Exam: Reason for Consult: Write/Manage TPN/PPN Consult to PICC Line RN [CONS] Routine Reason For Exam: picc needed for tpn Type Line:: PICC 06/26/17 17:22 Consult to Case Management [CONS] Routine Services Needed at Discharge: Home Health Services Notified:: cm notified Additional Physician Instructions: home tpn anticipate dc in 2-3 days Primary care physician: [employer] Hospitalization Reason for admission: Nausea & Vomiting Condition: Stable Hospital course: 46 yo CM s/p lap Gastric Sleeve plus procedure in February 2017 at [facility] presented with persistent nausea and diarrhea with vomiting that intensified. He reported overall fatigue and malaise since the procedure. He denied abdominal pain and maintained ability to pass gas. Pt was given IVF and KCl and Mg sulfate to replete electrolyte imbalance and to rehydrate pt; he was administered TPN via PICC. For persistent diarrhea, pt was given Lomotil which have now lessened in frequency. Pt slowly improved with appetite and has been able to tolerate small sips, clear liquids and a moderate amount of soft solids. Pt has regained strength and is able to ambulate w/o problems. Pt is to be discharged w/ home [facility] elena for TPN administration w/ further lab measurement, including prealbumin level, prior to revision surgery w/ Dr Bojorquez scheduled for Sunday. Disposition: [id number]/TX-06 HOME UNDER [facility] Core Measure Documentation - Palliative Care Palliative Care/ Comfort Measures: Not Applicable - Core Measures Any of the following diagnoses?: none Exam - Constitutional Vitals: Temp Pulse Resp BP Pulse Ox 97.5 F L 70 18 113/81 98 06/29/17 07:32 06/29/17 07:32 06/29/17 07:32 06/29/17 07:32 06/29/17 07:32 General appearance: Present: no acute distress - EENT Eyes: Present: PERRL ENT: hearing intact - Respiratory Respiratory effort: normal (no increased respiratory effeort or SOB) - Cardiovascular Rhythm: regular Heart Sounds: Present: S1 & S2 - Extremities Extremities: no ischemia, Full ROM - Abdominal General gastrointestinal: Present: soft, non-tender. Absent: distended, mass - Integumentary Integumentary: Present: clear - Musculoskeletal Musculoskeletal: strength equal bilaterally - Psychiatric Psychiatric: appropriate mood/affect - Neurologic Neurologic: CNII-XII intact Plan Activity: no restrictions Diet: other (Bariatric III diet as tolerated; small amounts of liquids/solids at once, tpn via picc) Special Instructions: home health RN, other (home TPN administration via home maria elena RN instructions) Additional Instructions: Will contact patient Sunday to review lab results and discuss surgery for Sunday. Clears starting Sunday. NPO Sunday if surgery for Sunday is still planned. Follow up with: PRIMARY CARE, [Primary Care Provider] - 7 Days
[2017-06-29 12:10] VITALS: BP 106/80
== END 2017-06-29 15:00 | disposition home health service (06) | DRG 392 ==
LOC: ED 08:51 → 3A 10:28 → 3B-SURG 10:58
PROVIDERS: ADMIT Surgery; ATTEND Specialist
PROC: 3E0436Z Introduction of Nutritional Substance into Central Vein, Percutaneous Approach (ICD-10-PCS; principal; 2017-06-26)
PROC: 02HV33Z Insertion of Infusion Device into Superior Vena Cava, Percutaneous Approach (ICD-10-PCS; 2017-06-26)
DX: R11.2 Nausea with vomiting, unspecified (principal); I10 Essential (primary) hypertension; E78.5 Hyperlipidemia, unspecified; E66.01 Morbid (severe) obesity due to excess calories; Z68.26 Body mass index [BMI] 26.0-26.9, adult; F32.9 Major depressive disorder, single episode, unspecified; K60.2 Anal fissure, unspecified; R23.8 Other skin changes
CPT/HCPCS: 36415; 71010; 80048; 80053; 81001; 82306; 82607; 82962; 83735; 84100; 84134; 84207; 84425; 84590; 85007; 85025; 93005; 93010; J1170; J1650; J2060; J2405; J3411; J3475; J3480; J7030; J7050; J7120; J7121

== ENCOUNTER 2017-07-02 19:37 | Inpatient (IN) | payer OTHER ==
[2017-07-02 20:07] LABS: Basophils % (Auto) 1.1 % (0.0-1.8); Hematocrit 35.3 % (35.5-45.6); Hemoglobin 11.6 gm/dl (11.8-15.2); Mean Corpuscular HGB Conc 33 % (32-34); Mean Corpuscular Hemoglobin 30 pg (28-32); Mean Corpuscular Volume 91 fl (84-94); Platelet Count 188 K/mm3 (140-440); Red Blood Count 3.88 M/mm3 (3.65-5.03); Red Cell Distribution Width 15.8 % (13.2-15.2); White Blood Count 5.1 K/mm3 (4.5-11.0)
[2017-07-02 20:23] LABS: BUN/Creatinine Ratio 31; Blood Urea Nitrogen 28 mg/dL (9-20); Carbon Dioxide 20 mmol/L (22-30); Chloride 102.2 mmol/L (98-107); Glucose 88 mg/dL (75-100); Potassium 4.7 mmol/L (3.6-5.0); Sodium 136 mmol/L (137-145)
[2017-07-02 20:27] LABS: Anion Gap 19 mmol/L
[2017-07-02 21:08] LABS: Bilirubin,Urine NEG (Negative); Blood,Urine MOD (Negative); Ketones,Urine NEG (Negative); Leukocyte Esterase,Urine NEG (Negative); Mucus,Urine FEW /HPF; Nitrite,Urine NEG (Negative); Protein,Urine <15 mg/dL mg/dL (Negative); Urobilinogen,Urine < 2.0 mg/dL (<2.0)
--- NOTE | 2017-07-03 06:55 | Emergency Department Report ---
HPI - General Chief Complaint: Nausea/Vomiting/Diarrhea Time Seen by Provider: 07/03/17 06:01 - HPI HPI: This is a 46-year-old male who presents to the emergency department with a complaint of nausea, vomiting and dehydration that has been going on again for the past 3-4 days. The patient has a history of a gastric sleeve plus done by Dr. Lyle back in February. He has had multiple episodes of these symptoms and he just spent one week at [facility] admitted for this as well and was discharged last Sunday, 5 days ago. He otherwise has a history of mild hypertension. He has not taken anything for his symptoms prior to presentation. He contacted his surgeon, Dr. Lyle, and says that she has on her way in to see him. ED Past Medical Hx - Past Medical History Previous Medical History?: Yes Hx Hypertension: Yes (2015) Hx Congestive Heart Failure: No (mitral valve replacement; HTN) Hx Diabetes: No Hx Deep Vein Thrombosis: No Hx Renal Disease: No Hx Seizures: No Hx Kidney Stones: Yes Hx Asthma: No Hx COPD: No Hx HIV: No - Surgical History Past Surgical History?: Yes Hx Open Heart Surgery: Yes (MITRAL VALVE REPLACEMENT 05/2016) Hx Pacemaker: No Hx Internal Defibrillator: No Additional Surgical History: Gastric sleeve and bypass - Social History Smoking Status: Never Smoker Substance Use Type: None - Medications Home Medications: Home Medications Medication Instructions Recorded Confirmed Last Taken Type Bupropion HCl [Wellbutrin SR] 300 mg PO QDAY 02/26/17 07/02/17 02/27/17 History Fluticasone [Flonase] 1 spray NS QDAY 02/26/17 07/02/17 02/27/17 History Loratadine [Claritin] 10 mg PO DAILY 02/26/17 07/02/17 02/27/17 History Nebivolol HCl [Bystolic] 2.5 mg PO QDAY 02/26/17 07/02/17 02/27/17 History traZODone [Desyrel] 25 mg PO QHS 02/26/17 07/02/17 02/27/17 History Dexilant 1 tab PO QHS 06/25/17 07/02/17 Unknown History Diphenoxylate/Atropine [Lomotil] 3 tab PO QDAY 06/25/17 07/02/17 Unknown History ED Review of Systems ROS: Stated complaint: NAUSEA/VOMIT/DIARRHEA Other details as noted in HPI Comment: All other systems reviewed and negative Constitutional: denies: chills, fever Eyes: denies: eye pain, eye discharge, vision change ENT: denies: ear pain, throat pain Respiratory: denies: cough, shortness of breath, wheezing Cardiovascular: denies: chest pain, palpitations Gastrointestinal: nausea, vomiting Genitourinary: denies: urgency, dysuria Musculoskeletal: denies: back pain, joint swelling, arthralgia Skin: denies: rash, lesions Neurological: denies: headache, weakness, paresthesias Physical Exam - Physical Exam Vital Signs: Vital Signs 07/02/17 07/03/17 19:43 02:14 Temperature 98.5 F 97.4 F L Pulse Rate 94 H 77 Respiratory 16 16 Rate Blood Pressure 121/87 Blood Pressure 114/76 [Left] O2 Sat by Pulse 99 100 Oximetry Physical Exam: GENERAL: The patient is well-developed well-nourished. HENT: Normocephalic. Atraumatic. Patient has moist mucous membranes. EYES: Extraocular motions are intact. Pupils equal reactive to light bilaterally. NECK: Supple. Trachea is midline. CHEST/LUNGS: Clear to auscultation. There is no respiratory distress noted. HEART/CARDIOVASCULAR: Regular. There is no tachycardia. There is no gallop rub or murmur. ABDOMEN: Abdomen is soft. Mild epigastric tenderness to palpation. Patient has normal bowel sounds. There is no abdominal distention. SKIN: Skin is warm and dry. NEURO: The patient is awake, alert, and oriented. The patient is cooperative. The patient has no focal neurologic deficits. The patient has normal speech. MUSCULOSKELETAL: There is no tenderness or deformity. There is no limitation range of motion. There is no evidence of acute injury. ED Course Vital Signs 07/02/17 07/03/17 19:43 02:14 Temperature 98.5 F 97.4 F L Pulse Rate 94 H 77 Respiratory 16 16 Rate Blood Pressure 121/87 Blood Pressure 114/76 [Left] O2 Sat by Pulse 99 100 Oximetry - Consultations Consultation #1: Dr. Lyle did come into the hospital to see the patient and says that they are going to most likely admit him and take him to the operating room for some type of a revision due to his continued nausea, vomiting symptoms and malabsorption. She asked for the TPA to be discontinued at this time and would like a 1 L bolus of IV fluid and some antiemetics. 07/03/17 06:55 ED Medical Decision Making - Lab Data Result diagrams: 07/02/17 19:55 07/02/17 19:55 - EKG Data -: EKG Interpreted by Me EKG shows normal: sinus rhythm, axis, intervals (slightly prolonged SD interval) , QRS complexes, ST-T waves Rate: normal - EKG Data When compared to previous EKG there are: previous EKG unavailable Interpretation: other (slightly prolonged SD interval) - Medical Decision Making 46-year-old male presents with nausea and vomiting and some upper abdominal discomfort that is a reoccurrence of symptoms that had him admitted last week. His bariatric surgeon came in and asked for the TPA to be turned off, to be given IV fluid and nausea medication and they will take him to the OR and admitted him to their service. Critical Care Time: No Critical care attestation.: If time is entered above; I have spent that time in minutes in the direct care of this critically ill patient, excluding procedure time. ED Disposition Clinical Impression: Dehydration Nausea and vomiting Qualifiers: Vomiting type: unspecified Vomiting Intractability: non-intractable Qualified Code(s): R11.2 - Nausea with vomiting, unspecified Abdominal pain Qualifiers: Abdominal location: epigastric Qualified Code(s): R10.13 - Epigastric pain Disposition: OP ADMIT IP TO THIS HOSP Is pt being admited?: Yes Condition: Stable Time of Disposition: 12:57
[2017-07-03] MEDS ORDERED: ZOFRAN IV ONE (06:56)
[2017-07-03] MEDS ORDERED: NACL 0.9% 1000 ML 1,000 ML IV ONE (06:56)
--- NOTE | 2017-07-03 07:38 | History and Physical Report ---
History of Present Illness Chief complaint: nausea/vomiting/diarrhea History of present illness: 46 yo CM s/p lap Gastric Sleeve plus procedure in February 2017 at [facility] presents with persistent nausea and diarrhea with vomiting. The patient was recently discharged from [facility] with a picc line for nutritional support and was tolerating liquid po intake at the time of discharge. Shortly after discharge he started to have more frequent diarrhea despite lomitl and avoiding sugar/ carbs. He used zofran for nausea which helped at first but then became nauseas despite zofran. At time of discharge he was having 4 loose stools a day but became worse at home. He felt very weak and dizzy despite tpn infusing via picc line. He denies abdominal pain, fever or chills. He is voiding less then usual. Pre Wt: 310lbs BMI: 42 Past History Past Medical History: hyperlipidemia, other (depression, anxiety, hx of HTN- now resolved. ) Past Surgical History: valve replacement (05/2016), Other (sleeve plus procedure February 2017 [facility]) Social history: no significant social history, full code, other (lives with partner). denies: smoking, alcohol abuse, prescription drug abuse, IV drug use Family history: cancer Medications and Allergies Allergies Allergy/AdvReac Type Severity Reaction Status Date / Time No Known Allergies Allergy Verified 07/02/17 11:44 Home Medications Medication Instructions Recorded Confirmed Last Taken Type Bupropion HCl [Wellbutrin SR] 300 mg PO QDAY 02/26/17 07/02/17 02/27/17 History Fluticasone [Flonase] 1 spray NS QDAY 02/26/17 07/02/17 02/27/17 History Loratadine [Claritin] 10 mg PO DAILY 02/26/17 07/02/17 02/27/17 History Nebivolol HCl [Bystolic] 2.5 mg PO QDAY 02/26/17 07/02/17 02/27/17 History traZODone [Desyrel] 25 mg PO QHS 02/26/17 07/02/17 02/27/17 History Dexilant 1 tab PO QHS 06/25/17 07/02/17 Unknown History Diphenoxylate/Atropine [Lomotil] 3 tab PO QDAY 06/25/17 07/02/17 Unknown History Active Meds: Active Medications Enoxaparin Sodium (Lovenox) 40 mg SUB-Q QDAY BHAVANA Hydralazine HCl (Apresoline) 10 mg IV Q6H PRN PRN Reason: SBP > 150 Hydromorphone HCl (Dilaudid) 0.5 mg IV Q3H PRN PRN Reason: Pain , Severe (7-10) Sodium Chloride (Nacl 0.9% 1000 Ml) 1,000 mls @ 999 mls/hr IV BOLUS ONE Stop: 07/03/17 07:56 Last Admin: 07/03/17 07:07 Dose: 999 mls/hr Cefazolin Sodium 2 gm/ Sodium (Chloride) 100 mls @ 200 mls/hr IV ONCE ONE Stop: 07/03/17 08:02 Lactated Ringer's (Lactated Ringers) 1,000 mls @ 150 mls/hr IV DIRECT BHAVANA Metronidazole (Flagyl 500 Mg/100 Ml) 500 mg in 100 mls @ 200 mls/hr IV PREOP NR Stop: 07/03/17 08:29 Dextrose/Sodium Chloride (D5ns) 1,000 mls @ 125 mls/hr IV DIRECT BHAVANA Metoclopramide HCl (Reglan) 10 mg IV Q6H PRN PRN Reason: Nausea And Vomiting Ondansetron HCl (Zofran) 4 mg IV Q4H BHAVANA Simethicone (Mylicon) 80 mg PO Q6H PRN PRN Reason: Gas pain Review of Systems - Constitutional weight loss, fatigue, weakness, malaise, lethargy, poor appetite - Cardiovascular lightheadedness, no chest pain, no orthopnea, no palpitations, no rapid/ irregular heart beat, no edema, no syncope, no shortness of breath - Respiratory no cough, no cough with sputum, no excessive sputum, no shortness of breath, no dyspnea on exertion - Gastrointestinal other (per hpi) - Genitourinary no dysuria, no discharge, no urinary frequency, no urinary hesitancy, no nocturia, no incontinence - Muskuloskeletal no neck stiffness, no neck pain, no shooting arm pain, no arm numbness/tingling , no low back pain, no shooting leg pain - Integumentary no rash, no pruritis, no sores, no wounds - Neurological weakness, no numbness, no tingling, no seizures, no syncope, no tremors - Psychiatric anxiety Exam Vital Signs Temp Pulse Resp BP Pulse Ox 98.5 F 94 H 16 121/87 99 07/02/17 19:43 07/02/17 19:43 07/02/17 19:43 07/02/17 19:43 07/02/17 19:43 - General physical appearance Positive: no distress, no pain, cathetic - Eyes Positive: PERRL - Respiratory Positive: normal expansion, normal respiratory effort, clear to auscultation - Cardiovascular Rhythm: regular - Extremities Extremities: no ischemia, pulses intact, pulses symmetrical Extremity abnormal: other (PICC line LUE: no redness or discharge at site. ) - Abdomen Abdomen: Present: soft, other (flat, non tender. no rebound no guarding. +BS. incisions healed. ) - Rectum Rectum: other (def.) - Neurologic Neurologic: alert and oriented to time, place and person, motor strength and sensation are grossly intact, CN II-XII intact - Musculoskeletal normal posture - Psychiatric Psychiatric: appropriate mood/affect, depressed Results - Labs 07/02/17 19:55 07/02/17 19:55 Abnormal lab results 07/02/17 07/02/17 Range/Units 19:55 19:55 Hgb 11.6 L (11.8-15.2) gm/dl Hct 35.3 L (35.5-45.6) % RDW 15.8 H (13.2-15.2) % Josephine % (Auto) 14.2 H (0.0-7.3) % Eos % (Auto) 5.0 H (0.0-4.3) % Sodium 136 L (137-145) mmol/L Carbon Dioxide 20 L D (22-30) mmol/L BUN 28 H (9-20) mg/dL Diabetes panel 07/02/17 Range/Units 19:55 Sodium 136 L (137-145) mmol/L Potassium 4.7 (3.6-5.0) mmol/L Chloride 102.2 (98-107) mmol/L Carbon Dioxide 20 L D (22-30) mmol/L BUN 28 H (9-20) mg/dL Creatinine 0.9 (0.8-1.5) mg/dL Glucose 88 (75-100) mg/dL Calcium 9.0 (8.4-10.2) mg/dL Calcium panel 07/02/17 Range/Units 19:55 Calcium 9.0 (8.4-10.2) mg/dL Pituitary panel 07/02/17 Range/Units 19:55 Sodium 136 L (137-145) mmol/L Potassium 4.7 (3.6-5.0) mmol/L Chloride 102.2 (98-107) mmol/L Carbon Dioxide 20 L D (22-30) mmol/L BUN 28 H (9-20) mg/dL Creatinine 0.9 (0.8-1.5) mg/dL Glucose 88 (75-100) mg/dL Calcium 9.0 (8.4-10.2) mg/dL Adrenal panel 07/02/17 Range/Units 19:55 Sodium 136 L (137-145) mmol/L Potassium 4.7 (3.6-5.0) mmol/L Chloride 102.2 (98-107) mmol/L Carbon Dioxide 20 L D (22-30) mmol/L BUN 28 H (9-20) mg/dL Creatinine 0.9 (0.8-1.5) mg/dL Glucose 88 (75-100) mg/dL Calcium 9.0 (8.4-10.2) mg/dL Assessment and Plan 46 y.o. male w hx of sleeve plus procedure February 2017, returning for the 3rd visit to the ER with nausea/vomiting and diarrhea; Pt has been admitted 2 prior times for the same nausea/vomiting and diarrhea. Despite being on TPN and having anti-emetic and anti-diarrhea medication at home he continues to have nausea/vomiting, and copious diarrhea leading to malnutrition. Since this is his 3rd visit for the same issue and he will likely continue to worsen if surgery is delayed he will have a laparoscopic reversal of his entero-enterostomy. If he does not have surgery he will likely worsen and the risk of surgery will become greater as he nutrition worsens. Pt agrees to have surgery after risks and benefits were discussed and the patient agrees to proceed. NPO, IVF. one L NS bolus now. Hold psych med until tolerating PO GI and DVT proph. - Patient Problems (1) Malnutrition Current Visit: Yes Status: Acute Qualifiers: Malnutrition type: unspecified type Protein-calorie malnutrition severity: P Qualified Code(s): E46 - Unspecified protein-calorie malnutrition
[2017-07-03 08:25] LABS: INR 1.02 (0.87-1.13)
[2017-07-03] MEDS ORDERED: D5NS 1,000 ML IV SCH (08:30)
[2017-07-03] MEDS ORDERED: LACTATED RINGERS 1,000 ML IV SCH (08:30)
[2017-07-03] MEDS ORDERED: REGLAN IV PRN (08:30)
[2017-07-03] MEDS ORDERED: APRESOLINE IV PRN (08:30)
[2017-07-03] MEDS ORDERED: FLAGYL 500 MG/100 ML 500 MG/100 ML BAG IV NR (08:30)
[2017-07-03] MEDS ORDERED: MYLICON PO PRN (09:00)
[2017-07-03] MEDS ORDERED: ceFAZolin 2 GM in NACL 0.9% 100 ML IV ONE (09:00)
--- NOTE | 2017-07-03 12:24 | Anesthesia Consultation ---
Anesthesia Consult and Med Hx Date of service: 07/03/17 - Airway Anesthetic Teeth Evaluation: Good ROM Head & Neck: Adequate Mental/Hyoid Distance: Adequate Mallampati Class: Class II Intubation Access Assessment: Probably Good - Pre-Operative Health Status ASA Pre-Surgery Classification: ASA2 Proposed Anesthetic Plan: General - Pulmonary Hx Smoking: No Hx Asthma: No COPD: No Hx Pneumonia: No Hx Sleep Apnea: Yes (RESOLVED DUE TO WEIGHT LOSS) - Cardiovascular System Hx Hypertension: Yes (2015) Hx Pacemaker: No Hx Internal Defibrillator: No Hx Valvular Heart Disease: Yes (MITRAL VALVE SURGERY 2015) - Central Nervous System Hx Seizures: No CVA: No Hx Psychiatric Problems: Yes (anxiety/depression) - Gastrointestinal Hx Gastroesophageal Reflux Disease: Yes - Endocrine Hx Renal Disease: No Hx End Stage Renal Disease: No Hx Cirrhosis: No Hx Non-Insulin Dependent Diabetes: No Hx Thyroid Disease: No - Other Systems Hx Alcohol Use: No Hx Substance Use: No Hx Cancer: No Hx Obesity: Yes (s/p bariatric surgery 03/05, lost 100 lbs)
--- NOTE | 2017-07-03 12:24 | Anesthesia Day of Surgery ---
Anesthesia Day of Surgery - Day of Surgery Patient Examined: Yes Patient H&P Reviewed: Yes Patient is NPO: Yes Beta Blockers: Yes
[2017-07-03] MEDS ORDERED: LOPRESSOR IV ONE (12:25)
[2017-07-03] MEDS: LOVENOX SUB-Q SCH (12:41)
[2017-07-03] MEDS ORDERED: PEPCID IV NR (13:00)
[2017-07-03] MEDS ORDERED: VERSED IV NR (13:00)
[2017-07-03] MEDS ORDERED: MARCAINE 0.5% 30 ML INFILTRATI ONE (13:26)
[2017-07-03] MEDS ORDERED: XYLOCAINE 1% 20 mL ONE (13:26)
[2017-07-03] MEDS ORDERED: XYLOCAINE 1% 20 mL INFILTRATI ONE (13:47)
[2017-07-03] MEDS ORDERED: MARCAINE 0.5% INFILTRATI ONE (13:48)
[2017-07-03] MEDS ORDERED: NACL 0.9% IR ONE (13:48)
[2017-07-03] MEDS ORDERED: NEO SYNEPHRINE/NS Syringe(OR USE) IV ONE (14:00)
[2017-07-03] MEDS ORDERED: DILAUDID ONE (14:30)
[2017-07-03] MEDS ORDERED: ZOFRAN ONE (14:30)
[2017-07-03] MEDS ORDERED: BLOXIVERZ ONE (14:30)
[2017-07-03] MEDS ORDERED: XYLOCAINE MPF 2% ONE (14:30)
[2017-07-03] MEDS ORDERED: ROBINUL ONE (14:30)
[2017-07-03] MEDS ORDERED: ZEMURON IV ONE (14:30)
[2017-07-03] MEDS ORDERED: SUBLIMAZE ONE (14:30)
[2017-07-03] MEDS ORDERED: DECADRON ONE (14:30)
[2017-07-03] MEDS ORDERED: DIPRIVAN 10 MG/ML IV ONE (14:30)
[2017-07-03] MEDS: DILAUDID IV PRN ×5 (15:23→20:55)
[2017-07-03] MEDS ORDERED: TORADOL ONE (16:05)
--- NOTE | 2017-07-03 16:27 | Post Anesthesia Evaluation ---
- Post Anesthesia Evaluation Patient Participated: Yes Airway Patent: Yes Stable Respiratory Function: Yes Temp > 96.8F: Yes Pain Manageable: Yes Adequeate Hydration: Yes Anesthesia Complications: No
[2017-07-03] MEDS ORDERED: TORADOL IV PRN (16:30)
[2017-07-03] MEDS: NORCO PO PRN (19:00)
[2017-07-03] MEDS: LACTATED RINGERS 1,000 ML IV SCH (19:01)
[2017-07-03] MEDS: ZOFRAN IV SCH (21:02)
[2017-07-03] MEDS: FLAGYL 500 MG/100 ML 500 MG/100 ML BAG IV SCH (21:06)
[2017-07-03] MEDS: ANCEF/NS 1 GM/50 ML 1 GM/50 ML BAG IV SCH (21:06)
[2017-07-04] MEDS: ZOFRAN IV SCH ×6 (00:45→20:57)
[2017-07-04] MEDS: DILAUDID IV PRN ×5 (01:55→20:57)
[2017-07-04] MEDS: FLAGYL 500 MG/100 ML 500 MG/100 ML BAG IV SCH ×2 (05:52→13:22)
[2017-07-04] MEDS: ANCEF/NS 1 GM/50 ML 1 GM/50 ML BAG IV SCH (05:58)
[2017-07-04 06:18] LABS: Basophils % (Auto) 0.4 % (0.0-1.8); Hematocrit 30.5 % (35.5-45.6); Hemoglobin 10.5 gm/dl (11.8-15.2); Mean Corpuscular HGB Conc 34 % (32-34); Mean Corpuscular Hemoglobin 31 pg (28-32); Mean Corpuscular Volume 92 fl (84-94); Platelet Count 166 K/mm3 (140-440); Red Blood Count 3.33 M/mm3 (3.65-5.03); White Blood Count 5.8 K/mm3 (4.5-11.0)
[2017-07-04 06:40] LABS: Alanine Aminotransferase 20 units/L (7-56); Albumin 3.1 g/dL (3.9-5); Albumin/Globulin Ratio 1.5 %; Alkaline Phosphatase 40 units/L (35-129); Anion Gap 14 mmol/L; BUN/Creatinine Ratio 24; Blood Urea Nitrogen 19 mg/dL (9-20); Calcium 8.5 mg/dL (8.4-10.2); Carbon Dioxide 23 mmol/L (22-30); Chloride 104.1 mmol/L (98-107); Glucose 118 mg/dL (75-100); Potassium 4.5 mmol/L (3.6-5.0); Sodium 137 mmol/L (137-145); Total Protein 5.2 g/dL (6.3-8.2)
[2017-07-04] MEDS: LOVENOX SUB-Q SCH (09:43)
--- NOTE | 2017-07-04 11:48 | Progress Note ---
Assessment and Plan 46 y.o. male w hx of sleeve plus procedure February 2017, returning for the 3rd visit to the ER with nausea/vomiting and diarrhea; S/p laparoscopic reversal of Sleeve Plus, POD 1 - Reports doing well, less pain - Has not tried sipping liquids yet, will try ice chips - Zofran 4mg q4h and Relgan for nausea, Dilaudid and [place] for pain management - LR for hydration Nutrition: - Fausto I diet, clear liquids - Encouraged to start trying to tolerate small sips - Will continue to monitor electrolytes Hold psych med until tolerating PO. DVT prophylaxis: Lovenox. Dispo: Will dc likely tomorrow. Will stay in hospital overnight to ensure he is able to tolerate fluids. he will not need TPN at time of DC. Prior to dc picc line should be removed. - Patient Problems (1) Malnutrition Current Visit: Yes Status: Acute Qualifiers: Malnutrition type: unspecified type Protein-calorie malnutrition severity: P Qualified Code(s): E46 - Unspecified protein-calorie malnutrition Subjective Date of service: 07/04/17 Patient Reports: Positive: no new complaints, feels better, pain is less, voiding w/o difficulty, afebrile. Negative: vomiting, shortness of breath, fever Narrative: Pt reports that his stomach is already feeling better- denies any abdominal cramping or feeling gas bubbles. . Has not been drinking liquids yet but will try later this morning. Advised to ambulate. Discussed possibility of going home today vs. tomorrow, pt will see how he feels this afternoon. Denies n/v, constipation, diarrhea. Objective Vital Signs - 12hr 07/04/17 07/04/17 07/04/17 04:52 04:57 08:00 Temperature 97.3 F L 97.5 F L Pulse Rate 72 73 Respiratory 20 18 Rate Blood Pressure 116/78 Blood Pressure 123/82 [Left] O2 Sat by Pulse 99 99 Oximetry - General physical appearance well developed, well nourished, no distress, moderate pain - Eyes normal occular movement - Neck trachea midline, no lymphadectomy - Abdomen soft, not tender, not distended, not rebound, not guarding, surgical scars ( Incisions clean, dry, in tact. tender at incision sites ) - Integumentary no rash - Neurologic normal coordination, normal sensation - Psychiatric oriented to time, oriented to person, oriented to place, speech is normal - Labs 07/04/17 05:00 07/04/17 05:00 Diabetes panel 07/04/17 Range/Units 05:00 Sodium 137 (137-145) mmol/L Potassium 4.5 (3.6-5.0) mmol/L Chloride 104.1 (98-107) mmol/L Carbon Dioxide 23 (22-30) mmol/L BUN 19 (9-20) mg/dL Creatinine 0.8 (0.8-1.5) mg/dL Glucose 118 H (75-100) mg/dL Calcium 8.5 (8.4-10.2) mg/dL AST 17 (5-40) units/L ALT 20 (7-56) units/L Alkaline Phosphatase 40 (35-129) units/L Total Protein 5.2 L (6.3-8.2) g/dL Albumin 3.1 L (3.9-5) g/dL Calcium panel 07/04/17 Range/Units 05:00 Calcium 8.5 (8.4-10.2) mg/dL Phosphorus 4.10 (2.5-4.5) mg/dL Albumin 3.1 L (3.9-5) g/dL Pituitary panel 07/04/17 Range/Units 05:00 Sodium 137 (137-145) mmol/L Potassium 4.5 (3.6-5.0) mmol/L Chloride 104.1 (98-107) mmol/L Carbon Dioxide 23 (22-30) mmol/L BUN 19 (9-20) mg/dL Creatinine 0.8 (0.8-1.5) mg/dL Glucose 118 H (75-100) mg/dL Calcium 8.5 (8.4-10.2) mg/dL Adrenal panel 07/04/17 Range/Units 05:00 Sodium 137 (137-145) mmol/L Potassium 4.5 (3.6-5.0) mmol/L Chloride 104.1 (98-107) mmol/L Carbon Dioxide 23 (22-30) mmol/L BUN 19 (9-20) mg/dL Creatinine 0.8 (0.8-1.5) mg/dL Glucose 118 H (75-100) mg/dL Calcium 8.5 (8.4-10.2) mg/dL Total Bilirubin 0.60 (0.1-1.2) mg/dL AST 17 (5-40) units/L ALT 20 (7-56) units/L Alkaline Phosphatase 40 (35-129) units/L Total Protein 5.2 L (6.3-8.2) g/dL Albumin 3.1 L (3.9-5) g/dL
[2017-07-04] MEDS: NORCO PO PRN (13:05)
[2017-07-04] MEDS ORDERED: D5NS 1,000 ML IV SCH (22:00)
[2017-07-05] MEDS: ZOFRAN IV SCH ×4 (06:21→11:15)
[2017-07-05] MEDS: DILAUDID IV PRN (06:22)
[2017-07-05] MEDS: LACTATED RINGERS 1,000 ML IV SCH (06:23)
[2017-07-05 08:22] LABS: Basophils % (Auto) 0.8 % (0.0-1.8); Eosinophils % (Auto) 5.9 % (0.0-4.3); Hemoglobin 10.6 gm/dl (11.8-15.2); Mean Corpuscular HGB Conc 34 % (32-34); Mean Corpuscular Hemoglobin 31 pg (28-32); Mean Corpuscular Volume 92 fl (84-94); Platelet Count 171 K/mm3 (140-440); Red Blood Count 3.37 M/mm3 (3.65-5.03); Red Cell Distribution Width 16.2 % (13.2-15.2); White Blood Count 4.5 K/mm3 (4.5-11.0)
[2017-07-05 08:45] LABS: Alanine Aminotransferase 29 units/L (7-56); Albumin 3.2 g/dL (3.9-5); Albumin/Globulin Ratio 1.5 %; Alkaline Phosphatase 49 units/L (35-129); Anion Gap 12 mmol/L; BUN/Creatinine Ratio 13; Blood Urea Nitrogen 10 mg/dL (9-20); Calcium 8.6 mg/dL (8.4-10.2); Carbon Dioxide 27 mmol/L (22-30); Glucose 84 mg/dL (75-100); Potassium 4.1 mmol/L (3.6-5.0); Sodium 140 mmol/L (137-145); Total Protein 5.4 g/dL (6.3-8.2)
[2017-07-05 08:53] VITALS: BP 125/83
--- NOTE | 2017-07-05 10:23 | Discharge Summary ---
Providers - Providers Date of Admission: 07/03/17 07:30 Attending physician: ZIGGY BOJORQUEZ Hospitalization Reason for admission: nausea and vomiting Condition: Stable Hospital course: 46 yo CM s/p lap Gastric Sleeve plus procedure in February 2017 at [facility] presented with persistent nausea and diarrhea with vomiting. The patient was recently discharged from [facility] with a picc line for nutritional support and was tolerating liquid po intake at the time of discharge. He was scheduled for surgery for revision of entero-enterostomy however he was admitted the day prior due to intractable nausea and vomiting. On Hosp day 1 he underwent laparoscopic entero-enterostomy. On POD 1 he was able to start drinking clears and ambulating. During his hospital course he pain was controlled with first IV meds then changed to PO meds. He was able to increase his po intake without issues. After surgery he did have complaints of diarrhea as prior. Prior to discharge his picc line was removed. Disposition: DC- TO HOME OR SELFCARE - Discharge Diagnoses (1) Malnutrition Status: Acute Qualifiers: Malnutrition type: unspecified type Qualified Code(s): E46 - Unspecified protein-calorie malnutrition Core Measure Documentation - Palliative Care Palliative Care/ Comfort Measures: Not Applicable - Core Measures Any of the following diagnoses?: none Exam - Physical Exam Narrative exam: no change from prior - Constitutional Vitals: Temp Pulse Resp BP Pulse Ox 98.1 F 74 18 125/83 98 07/05/17 08:03 07/05/17 08:03 07/05/17 08:03 07/05/17 08:03 07/05/17 08:03 Plan Activity: other (no lifting >15lbs for 6 weeks ) Diet: clear liquids (sugar free clears, advance as tolerated ) Additional Instructions: follow up with Dr Bojorquez in 2 weeks Follow up with: FAY PERALAT MD [Other] - 3-5 Days
== END 2017-07-05 12:10 | disposition home or self-care (01) | DRG 330 ==
LOC: ED 19:37 → 3B-SURG 07-03 07:30
PROVIDERS: ADMIT Specialist; ATTEND Specialist
PROC: 0D1 Gastrointestinal System, Bypass (ICD-10-PCS; principal; 2017-07-03)
DX: K90.9 Intestinal malabsorption, unspecified (principal); E46 Unspecified protein-calorie malnutrition; R19.7 Diarrhea, unspecified; I10 Essential (primary) hypertension; E78.5 Hyperlipidemia, unspecified; F32.9 Major depressive disorder, single episode, unspecified; F41.9 Anxiety disorder, unspecified; K21.9 Gastro-esophageal reflux disease without esophagitis; Z68.28 Body mass index [BMI] 28.0-28.9, adult; Z87.442 Personal history of urinary calculi; Z95.2 Presence of prosthetic heart valve; Z98.84 Bariatric surgery status; Z79.899 Other long term (current) drug therapy
CPT/HCPCS: 36415; 80048; 80053; 81001; 83735; 84100; 85025; 85610; 86850; 86900; 86901; 93005; 93010; 96374; 99285; C9250; J0690; J1100; J1170; J1650; J1885; J2250; J2370; J2405; J2704; J2710; J2765; J3010; J7030; J7042; J7120